=== PATIENT | male | born 1930 | race American Indian/Alaskan Native ===

== ENCOUNTER 2016-10-17 09:54 | Outpatient (CLI) | payer MEDICARE, OTHER ==
[2016-10-17 10:55] LABS: Blood Urea Nitrogen 20 mg/dL (9-20)
--- NOTE | 2016-10-17 14:50 | Cat Scan Report ---
CT CHEST WITH CONTRAST: CT ABDOMEN WITH CONTRAST: INDICATION: Right upper quadrant pain. Stage III lung cancer. COMPARISON: 07/17/2016 PET/CT. FINDINGS: Chest and abdomen CT performed following oral and IV contrast. CHEST: Stable heart size. Few atherosclerotic calcifications. Grossly unremarkable great vessels. No pericardial or left pleural effusion. Patent central airway. Mild increased soft tissue/consolidation though surrounds/encases the right main stem bronchus divisions at the hilum with maximum confluent density now approximately 6 x 1.8 cm, axial image 116, series 2, again extending into the right middle lobe with some to inferior aspect of the right upper lobe and some to the adjacent right lower lobe. Increased peripheral/pleural-based hypodensity as on axial image 91, series 2 also noted in this patient with increased right pleural effusion reaching the apex with maximum AP depth now of approximately 3.4 cm, previously approximately 1 cm. No focal suspicious right apical lung lesion also now identified. Right hilar or subcarinal lymphadenopathy difficult to exclude in this setting. Few small AP window lymph nodes noted without significant left hilar or axillary lymphadenopathy. Unremarkable thyroid. Right upper anterior chest wall port tip extending to the cavoatrial junction again noted. Mild emphysematous changes noted, most involving the upper lobes. Right lung interstitial prominence/scarring/interstitial pneumonitis also again noted to some extent with mild interval variation. Nonspecific distal esophageal wall thickening, not excluded for gastroesophageal reflux and/or hiatal hernia, amongst others. ABDOMEN: Multiple hepatic hypodensities again noted, some subcentimeter and indeterminate while the largest in the left hepatic lobe posteriorly is stable, measuring 1.6 x 1 cm, axial image 330, series 2. Bilateral renal cortical hypodensities/cysts also again noted, the largest at the left upper renal pole measuring 6.7 cm and at the right lower renal pole measuring 4.3 cm. Mild bilateral perinephric stranding/densities. Stable nonobstructing left renal calcifications measuring up to 4 mm, axial image 386, series 2. Spleen, gallbladder, pancreas, adrenals, nonaneurysmal abdominal aorta with atherosclerotic calcifications and IVC within normal limits. No ascites or size significant adenopathy. Opacified GI tract nonobstructive. Moderate colonic stool/possible constipation. Demineralized bones with moderate multilevel degenerative changes along the imaged spine, including large right-sided thoracic spine osteophytes/possible DISH, lower lumbar facet arthropathy and mild bilateral SI joint degenerative spurring. Possible osteopenia. CONCLUSION: 1. 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 2. No acute CT abnormality in the abdomen with various other incidental findings, including hepatic and renal cysts, possible constipation, bony degenerative changes and right-sided chest port, amongst others, as detailed above. Thank you for the opportunity to participate in this patient's care.
== END 2016-10-17 09:55 | disposition home or self-care (01) ==
LOC: CT 09:54
PROVIDERS: ATTEND Internal Medicine Hematology & Oncology
DX: E11.22 Type 2 diabetes mellitus with diabetic chronic kidney disease (principal); N18.9 Chronic kidney disease, unspecified; C34.2 Malignant neoplasm of middle lobe, bronchus or lung; N28.1 Cyst of kidney, acquired; I70.0 Atherosclerosis of aorta; M47.894 Other spondylosis, thoracic region; J90 Pleural effusion, not elsewhere classified; M25.78 Osteophyte, vertebrae; J84.89 Other specified interstitial pulmonary diseases; N28.89 Other specified disorders of kidney and ureter; R10.11 Right upper quadrant pain
CPT/HCPCS: 36415; 71260; 74160; 82565; 84520; Q9967

== ENCOUNTER 2017-01-28 09:38 | Outpatient (CLI) | payer MEDICARE, OTHER ==
[2017-01-28 10:34] LABS: Blood Urea Nitrogen 27 mg/dL (9-20)
--- NOTE | 2017-01-28 14:27 | Cat Scan Report ---
CT CHEST WITH AND WITHOUT CONTRAST: HISTORY: Restaging of lung cancer, anemia, weight loss. TECHNIQUE: Helical CT following IV contrast. Sagittal and coronal reformatted images. FINDINGS: Compared to 10/17/16. The right pleural effusion has nearly resolved and measures approximately 1 cm in thickness on today's exam. Right perihilar spiculation and scarring is again identified. This has decreased in size by approximately 25%. This appears to represent radiation changes. There is no obvious mass or adenopathy at the right hilum although collapse/atelectasis/scarring obscures much of the right hilum. There are emphysematous changes throughout both lungs. No new pulmonary nodule, mass or pneumothorax. Heart size is within normal limits. No pericardial effusion. The mediastinal vessels are patent. No mediastinal or extrathoracic adenopathy has developed. Normal thyroid gland. The bony thorax is intact. No suspicious bony lesion has developed. IMPRESSION: Assumed radiation changes/scarring at the right hilum which has decreased in size by 25% since 10/17/16. There is no obvious recurrent mass or adenopathy in the chest. Emphysematous changes. Near resolution of the right pleural effusion.
--- NOTE | 2017-01-28 14:32 | Cat Scan Report ---
CT ABDOMEN WITH AND WITHOUT CONTRAST HISTORY: Malignant neoplasm of middle lobe, restaging of lung cancer, weight loss. TECHNIQUE: Helical CT before and after IV contrast. Sagittal and coronal reformatted images. FINDINGS: Compared to 10/17/16. The liver remains normal size and density. There are a few scattered cysts in the liver measuring up to 1 cm which are unchanged. No suspicious liver mass. The biliary system, pancreas, spleen and adrenal glands are unremarkable. No adrenal mass. Bilateral nonobstructing renal stones are identified. There are 2 cysts in the right kidney measuring 2 cm near mid pole and 4.2 cm at the inferior pole. A solitary cyst at the superior pole of the left kidney measures 6.3 cm. The visualized ureters are normal caliber. There is mild fecal retention in the visualized colon. There is no evidence for bowel obstruction or focal wall thickening. There are diffuse aortic calcifications. No aneurysm. No ascites, acute inflammation or bulky adenopathy is appreciated. There is moderate to severe thoracolumbar spondylosis. No fracture or suspicious bony lesion. IMPRESSION: No evidence for metastatic disease to the abdomen. Scattered liver and renal cysts. Bilateral renal stones, nonobstructing. Thoracolumbar spondylosis.
== END 2017-01-28 09:39 | disposition home or self-care (01) ==
LOC: CT 09:38
PROVIDERS: ATTEND Internal Medicine Hematology & Oncology
DX: C34.2 Malignant neoplasm of middle lobe, bronchus or lung (principal); I12.9 Hypertensive chronic kidney disease with stage 1 through stage 4 chronic kidney disease, or unspecified chronic kidney disease; N18.9 Chronic kidney disease, unspecified; E11.22 Type 2 diabetes mellitus with diabetic chronic kidney disease; K76.89 Other specified diseases of liver; D64.9 Anemia, unspecified; R63.4 Abnormal weight loss; N20.0 Calculus of kidney; N28.1 Cyst of kidney, acquired; I70.0 Atherosclerosis of aorta; M47.895 Other spondylosis, thoracolumbar region
CPT/HCPCS: 36415; 71270; 74170; 82565; 84520; Q9967

== ENCOUNTER 2017-09-10 08:16 | Outpatient (CLI) | payer MEDICARE, OTHER | END 2017-09-10 08:17 | disposition home or self-care (01) | LOC: PET 08:16 | PROVIDERS: ATTEND Internal Medicine Hematology & Oncology | DX: C34.2 Malignant neoplasm of middle lobe, bronchus or lung (principal); I12.9 Hypertensive chronic kidney disease with stage 1 through stage 4 chronic kidney disease, or unspecified chronic kidney disease; N18.9 Chronic kidney disease, unspecified; E11.22 Type 2 diabetes mellitus with diabetic chronic kidney disease; D64.9 Anemia, unspecified; Z79.899 Other long term (current) drug therapy | CPT/HCPCS: 82962 ==

== ENCOUNTER 2017-09-17 07:07 | Outpatient (CLI) | payer MEDICARE, OTHER ==
--- NOTE | 2017-09-21 08:14 | PET Report ---
PET SB TO MT SUBSEQUENT: HISTORY: Pulmonary nodule, restaging of lung cancer. TECHNIQUE: 12.9 millicuries F-18 FDG was administered intravenously. Noncontrast CT images and PET images were obtained from the skull base to the proximal thighs. Fused images were reviewed on a workstation. The patient's blood glucose level measured 113. COMPARISON: 07/17/16. FINDINGS: BRAIN: physiologic FDG uptake in the imaged brain. NECK: physiologic FDG uptake. MEDIASTINUM: physiologic FDG uptake. LUNGS: Fullness and scarring in the right perihilar region appears unchanged in size and configuration measuring approximately 7.9 x 3.2 cm in axial plane. Max SUV in this area measures up to 4.0. No focal area of increased activity is appreciated. This presumably represents post radiation pneumonitis. No new pulmonary nodule or hypermetabolic mass is detected. Small right pleural effusion has resolved. PLEURA/PERICARDIUM: physiologic FDG uptake. THORACIC LYMPH NODES: physiologic FDG uptake. HEPATOBILIARY: physiologic FDG uptake. Mean liver SUV measures 4.3 as opposed to 3.4 on the previous exam. PANCREAS: physiologic FDG uptake. SPLEEN: physiologic FDG uptake. ADRENAL GLANDS: physiologic FDG uptake. KIDNEYS/RENAL COLLECTING SYSTEMS: physiologic FDG uptake. BOWEL/MESENTERY: physiologic FDG uptake. PELVIC VISCERA: physiologic FDG uptake. ABDOMINAL/PELVIC LYMPH NODES: physiologic FDG uptake. MUSCULOSKELETAL: physiologic FDG uptake. IMPRESSION: Negative PET/CT. Stable findings since 07/17/16 exam. Persistent postradiation changes at the right hilum as described.
== END 2017-09-17 07:08 | disposition home or self-care (01) ==
LOC: PET 07:07
PROVIDERS: ATTEND Internal Medicine Hematology & Oncology
DX: C34.2 Malignant neoplasm of middle lobe, bronchus or lung (principal); J90 Pleural effusion, not elsewhere classified; I12.9 Hypertensive chronic kidney disease with stage 1 through stage 4 chronic kidney disease, or unspecified chronic kidney disease; N18.9 Chronic kidney disease, unspecified; E11.22 Type 2 diabetes mellitus with diabetic chronic kidney disease
CPT/HCPCS: 78815; 82962; A9552

== ENCOUNTER 2020-10-08 07:08 | Outpatient (CLI) | payer MEDICARE, OTHER ==
--- NOTE | 2020-10-08 08:26 | Cat Scan Report ---
CT CHEST WITHOUT CONTRAST INDICATION / CLINICAL INFORMATION: MALIGNANT NEOPLASM OF MIDDLE LOBE,BRONCHUS OR LUNG. TECHNIQUE: Axial CT images were obtained through the chest without contrast. All CT scans at this location are p erformed using CT dose reduction for ALARA by means of automated exposure control. COMPARISON: 10/06/2018 FINDINGS: HEART: No significant abnormality aside from coronary artery disease.. THORACIC AORTA: No significant abnormality. MEDIASTINUM and DANIELLE: No significant abnormality. LUNGS: No significant change from compared to 10/06/2018. There is extensive diffuse emphysema. No si gnificant residual masslike abnormality is appreciated involving the medial right lung. There is pers istent extensive post radiation type changes throughout the medial right lung. Faint ill-defined nodu lar densities within the more peripheral right upper lung is unchanged since the prior exam PLEURA: No significant pleural effusion. No pneumothorax. ADDITIONAL FINDINGS: None. UPPER ABDOMEN: No acute abnormality. Prominent 6 cm cyst arising from the upper pole the left kidney. Nonobstructive left-sided nephrolithiasis incidentally noted. Extensive vascular calcification assoc iated with both kidneys. SKELETAL SYSTEM: No significant abnormality. IMPRESSION: No significant change in appearance or evidence of new disease when compared to 10/06/2018. Signer Name: Pablo Vinson MD Signed: 10/08/2020 8:21 AM Workstation Name: [id number]
== END 2020-10-08 07:09 | disposition home or self-care (01) ==
LOC: CT 07:08
PROVIDERS: ATTEND Internal Medicine Hematology & Oncology
DX: C34.2 Malignant neoplasm of middle lobe, bronchus or lung (principal); N28.1 Cyst of kidney, acquired; N28.89 Other specified disorders of kidney and ureter; N20.0 Calculus of kidney; J43.9 Emphysema, unspecified
CPT/HCPCS: 71250

== ENCOUNTER 2021-07-29 10:01 | Outpatient (CLI) | payer MEDICARE, OTHER ==
--- NOTE | 2021-07-29 11:46 | Cat Scan Report ---
CT CHEST WITHOUT CONTRAST INDICATION / CLINICAL INFORMATION: MALIGNANT NEOPLASM OF MIDDLE LOBE,BRONCHUS OR LUNG. TECHNIQUE: Axial CT images were obtained through the chest without contrast. All CT scans at this location are p erformed using CT dose reduction for ALARA by means of automated exposure control. COMPARISON: CT chest without contrast from 10/08/2020. FINDINGS: HEART: No significant abnormality. VASCULATURE: Normal caliber of the aorta with moderate aortic and mild coronary and great vessel athe rosclerosis. LYMPH NODES: No significant adenopathy. TRACHEA AND BRONCHI:No significant abnormality. LUNGS: Moderate emphysema is unchanged. There is similar right lung volume loss and postradiation jesus nge along the right upper and middle lobes. No suspicious nodule, mass or consolidation. No significa nt pleural effusion. No pneumothorax. UPPER ABDOMEN: No acute abnormality. Bilateral renal cysts are unchanged. BONES: No acute abnormality, aggressive-appearing lesion or other significant interval changes ADDITIONAL FINDINGS: None. IMPRESSION: Stable appearance of the chest without visualization of recurrent/metastatic disease. Signer Name: Shantanu Kothari MD Signed: 07/29/2021 11:41 AM Workstation Name: [id number]
== END 2021-07-29 10:02 | disposition home or self-care (01) ==
LOC: CT 10:01
PROVIDERS: ATTEND Internal Medicine Hematology & Oncology
DX: C34.2 Malignant neoplasm of middle lobe, bronchus or lung (principal); J43.9 Emphysema, unspecified
CPT/HCPCS: 71250

== ENCOUNTER 2022-02-27 12:01 | Outpatient (CLI) | payer MEDICARE, OTHER ==
--- NOTE | 2022-02-27 14:09 | Cat Scan Report ---
CT CHEST WITHOUT CONTRAST INDICATION / CLINICAL INFORMATION: SOB. TECHNIQUE: Axial CT images were obtained through the chest without contrast. All CT scans at this [facility] ation are performed using CT dose reduction for ALARA by means of automated exposure control. COMPARISON: 07/29/2021 FINDINGS: HEART: Mild cardiomegaly. Mitral valve calcifications. The main pulmonary artery is dilated to 3.5 cm , similar to prior exam. CORONARY ARTERY CALCIFICATION: Severe. THORACIC AORTA: Moderate atherosclerotic calcification without acute abnormality. MEDIASTINUM / DANIELLE: No significant abnormality. PLEURA: No pleural effusion. No pneumothorax. LUNGS: Upper lobe predominant emphysema. Stable volume loss and radiation change in the right upper r ight middle lobe with partial collapse of the right middle lobe with bronchiectasis. No suspicious ma ss identified. There are mild secretions in the right bronchus intermedius and right lower lobe bronc hi. ADDITIONAL FINDINGS: None. UPPER ABDOMEN: Small hiatal hernia. Cyst at superior pole of left kidney. Stable scattered hypodensit ies in the liver. SKELETAL SYSTEM: Multilevel degenerative changes of the spine. No aggressive osseous lesion. IMPRESSION: 1. Stable chest compared to 07/29/2021 without evidence of recurrent disease. Secretions in the bronc hus intermedius and right lower lobe bronchioles with bronchiectasis suggestive of chronic aspiration -related changes. 2. Additional stable incidental findings as above. Signer Name: Harsha Joyner MD Signed: 02/27/2022 2:05 PM Workstation Name: [id number]
== END 2022-02-27 12:02 | disposition home or self-care (01) ==
LOC: CT 12:01
PROVIDERS: ATTEND Internal Medicine Hematology & Oncology
DX: C34.2 Malignant neoplasm of middle lobe, bronchus or lung (principal); K76.89 Other specified diseases of liver; K44.9 Diaphragmatic hernia without obstruction or gangrene; N28.1 Cyst of kidney, acquired; M47.819 Spondylosis without myelopathy or radiculopathy, site unspecified; I25.10 Atherosclerotic heart disease of native coronary artery without angina pectoris; I70.0 Atherosclerosis of aorta; J43.9 Emphysema, unspecified
CPT/HCPCS: 71250